=== PATIENT | female | born 1985 | race Asian ===

== ENCOUNTER 2017-03-12 00:44 | Inpatient (IN) | payer SELFPAY ==
[~2017-03-12] VITALS: Ht 167.6 cm; Wt 69.9 kg
[2017-03-12] MEDS ORDERED: NALBUPHINE HYDROCHLORIDE 10 MG/ML VIAL IVP PRN (01:25)
[2017-03-12] MEDS ORDERED: PROMETHAZINE 25 MG/ML VIAL IVP PRN (01:25)
[2017-03-12] MEDS ORDERED: OXYTOCIN 20 UNITS/LR PREMIX 1,000 ML IV SCH (01:25)
[2017-03-12 01:40] LABS: APPEARANCE,URINE CLEAR (CLEAR); BILIRUBIN,URINE NEGATIVE (NEGATIVE); BLOOD, URINE NEGATIVE (NEGATIVE); COLOR,URINE YELLOW (YELLOW); LEUKOCYTE ESTERASE ,URINE NEGATIVE (NEGATIVE); NITRITE, URINE NEGATIVE (NEGATIVE); PROTEIN,URINE NEGATIVE (NEGATIVE); UGLUCOSE NEGATIVE (NEGATIVE); UROBILINOGEN,URINE 0.2 EU/dL (0.2 - 1)
[2017-03-12 01:47] LABS: BASOPHILS # (AUTO) 0.2 K/uL (0.00-0.22); BASOPHILS % (AUTO) 1.6 % (0.0-2.0); EOSINOPHILS # (AUTO) 0.3 K/uL (0-0.4); EOSINOPHILS % (AUTO) 2.8 % (0.0-4.0); HEMATOCRIT 36.5 % (36-48); HEMOGLOBIN 12.3 g/dL (12.0-16.0); LYMPHOCYTES # (AUTO) 2.5 K/uL (2.5-16.5); LYMPHOCYTES % (AUTO) 24.9 % (20.5-51.1); MEAN CORPUSCULAR HEMOGLOBIN 30 pg (27-31); MEAN CORPUSCULAR HGB CONC 34 g/dL (33-37); MEAN CORPUSCULAR VOLUME 89 fL (80-94); MONOCYTES # (AUTO) 0.9 K/uL (0.8-1.0); MONOCYTES % (AUTO) 8.6 % (1.7-9.3); NEUTROPHILS % (AUTO) 62.1 % (42.2-75.2); PLATELET COUNT (AUTO) 195 K/uL (140-450); RED BLOOD CELL COUNT(AUTO) 4.12 MIL/uL (4.20-5.40); RED CELL DISTRIBUTION WIDTH 12.6 % (11.6-13.7); WHITE BLOOD COUNT (AUTO) 9.9 K/uL (4.8-10.8)
[2017-03-12 01:59] LABS: ALBUMIN 2.8 g/dL (3.4-5.0); ANION GAP 13.3 (8-16); CALCIUM 8.9 mg/dL (8.5-10.1); CARBON DIOXIDE 21.9 mmol/L (21-32); CREATININE 0.6 mg/dL (0.6-1.3); MAGNESIUM 1.6 mg/dL (1.8-2.4); POTASSIUM 4.2 mmol/L (3.5-5.1); TOTAL BILIRUBIN 0.2 mg/dL (0.0-1.0); TOTAL PROTEIN, SERUM 6.3 g/dL (6.4-8.2)
[2017-03-12] MEDS ORDERED: OXYTOCIN 10 UNITS/ML VIAL IM SCH (02:00)
[2017-03-12] MEDS: LACTATED RINGERS 1,000 ML IV SCH ×3 (02:02→06:33)
[2017-03-12] MEDS ORDERED: OXYTOCIN 20 UNITS/LR PREMIX 1,000 ML IV ONE (02:03)
[2017-03-12] MEDS ORDERED: TRA200 PO (02:06)
[2017-03-12] MEDS ORDERED: PREN-546 PO (02:06)
[2017-03-12 02:07] LABS: RBC,URINE 0-5 (RARE) /HPF (0-5); WBC,URINE 0-5 (RARE) /HPF (0-5)
[2017-03-12 02:07] LABS: INR 0.9 (0.8-1.2); PARTIAL THROMBOPLASTIN TIME 26.5 secs (22-35.6); PROTHROMBIN TIME 9.3 secs (10.8-13.4)
[2017-03-12 02:08] LABS: BACTERIA,URINE RARE /HPF (None Seen); SQUAMOUS EPITHELIAL CELL,UR 0-3 (FEW) /LPF (0-3 (FEW))
[2017-03-12 02:10] VITALS: BP 149/73
[2017-03-12 02:15] LABS: HIV RAPID SCREEN NON-REACTIVE (NON REACTIV)
[2017-03-12] MEDS ORDERED: ROPIVACAINE 0.2%/NS PREMIX 250 ML EPI ONE (06:11)
--- NOTE | 2017-03-12 06:25 | NUR ---
PATIENT HAS BEEN SCREENED AND CATEGORIZED LOW NUTRITION RISK. PATIENT WILL BE SEEN WITHIN 7 DAYS OF ADMISSION. 03/18/[address]
[2017-03-12] MEDS ORDERED: ROPIVACAINE 0.2%/NS PREMIX 250 ML EPI SCH (06:45)
[2017-03-12] MEDS: LABETALOL 200 MG TAB PO SCH ×2 (08:58→21:43)
[2017-03-12] MEDS ORDERED: LABETALOL 200 MG TAB PO SCH (09:00)
[2017-03-12] MEDS ORDERED: LABETALOL 200 MG TAB ONE (09:03)
[2017-03-12] MEDS ORDERED: OXYTOCIN 10 UNITS/ML VIAL ONE (09:28)
[2017-03-12 12:51] LABS: RAPID PLASMA REAGIN NON-REACTIVE (Non Reactiv)
[2017-03-13] MEDS: LABETALOL 200 MG TAB PO SCH (09:15)
== END 2017-03-13 17:00 | disposition home or self-care (01) | DRG 775 ==
LOC: MLD 00:44 → MFCC 16:44
PROVIDERS: ADMIT Obstetrics & Gynecology; ATTEND Obstetrics & Gynecology
PROC: 10E0XZZ Delivery of Products of Conception, External Approach (ICD-10-PCS; principal; 2017-03-12)
PROC: 10907ZC Drainage of Amniotic Fluid, Therapeutic from Products of Conception, Via Natural or Artificial Opening (ICD-10-PCS; 2017-03-12)
PROC: 0W8NXZZ Division of Female Perineum, External Approach (ICD-10-PCS; 2017-03-12)
PROC: 00HU33Z Insertion of Infusion Device into Spinal Canal, Percutaneous Approach (ICD-10-PCS; 2017-03-12)
PROC: 3E0R3CZ (ICD-10-PCS; 2017-03-12)
DX: O13.4 Gestational [pregnancy-induced] hypertension without significant proteinuria, complicating childbirth (principal); O69.81X0 Labor and delivery complicated by cord around neck, without compression, not applicable or unspecified; Z37.0 Single live birth; Z3A.40 40 weeks gestation of pregnancy; Z28.21 Immunization not carried out because of patient refusal
CPT/HCPCS: 36415; 51702; 59409; 80053; 81001; 83735; 85025; 85384; 85610; 85730; 86592; 86886; 86900; 86901; J2590; J2795; J7120